=== PATIENT | male | born 1995 | race Caucasian/White ===

== ENCOUNTER 2018-11-04 06:41 | Emergency (ER) | payer OTHER ==
[2018-11-04] MEDS ORDERED: NORMAL SALINE 1000 ML 1,000 ML IV ONE ×2 (07:05→09:51)
[2018-11-04] MEDS ORDERED: ONDANSETRON HCL INJ/PF 4 MG/2 ML SDV IV ONE (07:05)
--- NOTE | 2018-11-04 07:41 | ER Document Report ---
ED GI/ - General Chief Complaint: Nausea/Vomiting/Diarrhea Stated Complaint: VOMITING, BODY PAIN Time Seen by Provider: 11/04/18 07:04 Mode of Arrival: Ambulatory Information source: Patient Notes: Patient is an otherwise healthy 22-year-old male who presents to the emergency department with chief complaint of nausea, vomiting and diarrhea that started yesterday. Patient reports mild generalized abdominal pain. He denies any flank pain or dysuria. He does report some intermittent low back pain. He reports he has vomited approximately 10 times and has had about 20 episodes of diarrhea since yesterday. Patient has no past medical or surgical history and all immunizations are up-to-date. TRAVEL OUTSIDE OF THE [place] IN LAST 30 DAYS: No - Related Data Allergies/Adverse Reactions: No Known Allergies Allergy (Unverified 11/04/18 12:17) Past Medical History - General Information source: Patient - Social History Smoking Status: Never Smoker Frequency of alcohol use: None Drug Abuse: None Family History: Reviewed & Not Pertinent - Medical History Medical History: Negative Surgical Hx: Negative - Immunizations Immunizations up to date: Yes Review of Systems - Review of Systems Constitutional: denies: Fever Gastrointestinal: Abdominal pain, Diarrhea, Nausea, Vomiting -: Yes All other systems reviewed and negative Physical Exam - Vital signs Vitals: Temp Pulse Resp BP Pulse Ox 97.7 F 107 H 18 129/76 H 96 11/04/18 06:42 11/04/18 06:42 11/04/18 06:42 11/04/18 06:42 11/04/18 06:42 - Notes Notes: PHYSICAL EXAMINATION: GENERAL: Well-appearing, well-nourished and in no acute distress. HEAD: Atraumatic, normocephalic. EYES: Pupils equal round and reactive to light, extraocular movements intact, sclera anicteric, conjunctiva are normal. ENT: Nares patent, oropharynx clear without exudates. Moist mucous membranes. NECK: Normal range of motion, supple without lymphadenopathy LUNGS: Breath sounds clear to auscultation bilaterally and equal. No wheezes rales or rhonchi. HEART: Regular rate and rhythm without murmurs ABDOMEN: Soft, nontender, nondistended abdomen. No guarding, no rebound. No masses appreciated. Musculoskeletal: Normal range of motion, no pitting or edema. No cyanosis. NEUROLOGICAL: Cranial nerves grossly intact. Normal speech, normal gait. Normal sensory, motor exams PSYCH: Normal mood, normal affect. SKIN: Warm, Dry, normal turgor, no rashes or lesions noted. Course - Re-evaluation Re-evalutation: Patient appears well and is nontoxic in appearance. Abdomen soft, nontender, no guarding, no rebound. Initially tachycardic on arrival with a heart rate of 107. Labs pending, IV fluids and Zofran ordered. Patient reports significant improvement after administration of IV fluids and antiemetics. Patient has had no episodes of nausea or vomiting while in the department. Patient does have nonspecific exocytosis, state likely secondary to multiple episodes of vomiting and diarrhea. Patient reports that he feels well. Patient's abdomen examination is unremarkable. Patient given strict ED return precautions to include development of increasing abdominal pain, development of fever or persistent vomiting. I explained to patient we are happy to reevaluate him at any time. I also explained to patient that I am unable to completely exclude appendicitis at this time however due to patient's examination and improvement of symptoms over the last several hours it is safe to discharge him home. Patient verbalizes understanding of same and is agreeable to discharge home. - Vital Signs Vital signs: Temp Pulse Resp BP Pulse Ox 97.7 F 59 L 18 96/45 L 99 11/04/18 12:20 11/04/18 12:20 11/04/18 12:20 11/04/18 12:20 11/04/18 12:20 - Laboratory Result Diagrams: 11/04/18 07:40 11/04/18 07:40 Laboratory results interpreted by me: 11/04/18 11/04/18 11/04/18 07:40 07:40 08:39 WBC 19.8 H Seg Neuts % (Manual) 87 H Lymphocytes % (Manual) 3 L Abs Neuts (Manual) 17.2 H Abs Monocytes (Manual) 1.8 H BUN 23 H Glucose 127 H Calcium 10.6 H Total Protein 8.3 H Albumin 5.4 H Urine Protein 30 H Urine Ketones TRACE H Urine Urobilinogen 2.0 H Discharge - Discharge Clinical Impression: Nausea vomiting and diarrhea Condition: Stable Disposition: HOME, SELF-CARE Additional Instructions: Abdominal Pain There are many causes of abdominal pain. Pain can mean a serious problem requiring surgery (such as appendicitis). It can also be an innocent problem that goes away on its own (such as a viral infection). Often, time must pass to determine the cause of pain. The physician does not feel that hospitalization is necessary, at present. Things may change within the next 24 hours. Call the doctor or come back for re- examination if any problems occur, such as: (1) Pain that becomes more severe, steady, or becomes concentrated in one specific area. Also, pain that is more severe with movement or coughing. (2) Vomiting that persists or becomes more frequent. (3) Blood in the vomitus, urine, or bowel movements. Blood in the stool may have a tarry or black appearance. (4) Shaking chills or fever greater than 100 degrees F. (5) The abdomen becomes more distended or swollen. (6) Bowel movements cease. (7) Failure to improve as expected. Your workup today as well as your physical assessment did not show any acute findings. Based upon the history of your illness as well as your symptoms you are probably having a viral gastroenteritis. Please continue to drink clear liquids throughout today. Then transition to a brat diet which consist of bananas, rice, applesauce and toast. Return to the emergency department if you have worsening of your abdominal pain, persistent vomiting or you develop a fever. We will be happy to reevaluate you. Prescriptions: Ondansetron [Zofran Odt 4 mg Tablet] 1 - 2 tab PO Q4H PRN #15 tab.rapdis PRN Reason: For Nausea/Vomiting
[2018-11-04 07:56] LABS: HEMOGLOBIN 16.6 g/dL (13.5-17.0); MEAN CORPUSCULAR HEMOGLOBIN 30.3 pg (27.0-33.4); MEAN CORPUSCULAR HGB CONC 33.9 g/dL (32.0-36.0); MEAN CORPUSCULAR VOLUME 89 fl (80-97); PLATELET COUNT 236 10^3/uL (150-450); RED BLOOD COUNT 5.49 10^6/uL (4.35-5.55); RED CELL DISTRIBUTION WIDTH 12.5 % (11.5-14.0); WHITE BLOOD COUNT 19.8 10^3/uL (4.0-10.5)
[2018-11-04 08:06] LABS: ALANINE AMINOTRANSFERASE 45 U/L (21-72); ALBUMIN 5.4 g/dL (3.5-5.0); ALKALINE PHOSPHATASE 60 U/L (38-126); ANION GAP 11 (5-19); ASPARTATE AMINO TRANSFERASE 32 U/L (17-59); BILIRUBIN,DIRECT 0.2 mg/dL (0.0-0.4); BILIRUBIN,TOTAL 0.7 mg/dL (0.2-1.3); BLOOD UREA NITROGEN 23 mg/dL (7-20); CALCIUM 10.6 mg/dL (8.4-10.2); CARBON DIOXIDE 30 mmol/L (22-30); CHLORIDE 104 mmol/L (98-107); GLUCOSE 127 mg/dL (75-110); LIPASE 37.2 U/L (23-300); POTASSIUM 4.8 mmol/L (3.6-5.0); SODIUM 144.7 mmol/L (137-145); TOTAL PROTEIN 8.3 g/dL (6.3-8.2)
[2018-11-04 08:15] LABS: ABSOLUTE LYMPHOCYTES# (MANUAL) 0.6 10^3/uL (0.5-4.7); ABSOLUTE MONOCYTES # (MANUAL) 1.8 10^3/uL (0.1-1.4); ABSOLUTE NEUTROPHILS# (MANUAL) 17.2 10^3/uL (1.7-8.2); BASOPHILS % (MANUAL) 0 % (0-2); EOSINOPHILS % (MANUAL) 1 % (0-6); LYMPHOCYTES % (MANUAL) 3 % (13-45); MONOCYTES % (MANUAL) 9 % (3-13); SEGMENTED NEUTROPHILS % (MAN) 87 % (42-78); TOTAL CELLS COUNTED 100
[2018-11-04 08:16] LABS: PLATELET COMMENT ADEQUATE; TOXIC GRANULATION 1+; TOXIC VACUOLATION PRESENT
[2018-11-04] MEDS ORDERED: KETOROLAC TROMETHAMINE INJ/PF 30 MG/1 ML SDV IV ONE (08:19)
[2018-11-04 09:01] LABS: APPEARANCE,URINE SLIGHTLY-CLOUDY; BILIRUBIN,URINE NEGATIVE (NEGATIVE); COLOR,URINE AMBER; GLUCOSE, URINE NEGATIVE (NEGATIVE); KETONES,URINE TRACE mg/dL (NEGATIVE); LEUKOCYTE ESTERASE,URINE NEGATIVE (NEGATIVE); NITRITE,URINE NEGATIVE (NEGATIVE); PROTEIN,URINE 30 mg/dL (NEGATIVE); URINE SPECIFIC GRAVITY 1.032
[2018-11-04 12:22] VITALS: BP 96/45
== END 2018-11-04 12:25 | disposition home or self-care (01) ==
LOC: ER 06:41
DX: R11.2 Nausea with vomiting, unspecified (principal); R19.7 Diarrhea, unspecified; M79.10 Myalgia, unspecified site; R10.84 Generalized abdominal pain
CPT/HCPCS: 99284; 96361; 96374; 96375; 36415; 83690; 85025; 80053; 81001; J1885; J2405; J7030